=== PATIENT | female | born 1980 | race Caucasian/White ===

== ENCOUNTER 2017-05-03 15:38 | Emergency (ER) | payer SELFPAY ==
[~2017-05-03] VITALS: Ht 167.6 cm; Wt 77.1 kg
[2017-05-03 16:09] VITALS: BP 140/103
== END 2017-05-03 19:47 | disposition home or self-care (01) ==
LOC: ER 15:43
DX: J45.909 Unspecified asthma, uncomplicated (principal)

== ENCOUNTER 2020-07-07 15:55 | Emergency (ER) | payer MEDICAID, OTHER ==
[~2020-07-07] VITALS: Ht 167.6 cm; Wt 68.0 kg
[2020-07-07 18:52] LABS: Basophils # (auto) 0 10 ^3/uL (0-0.2); Basophils % (auto) 0.2 % (0.0-2.0); Eosinophils # (auto) 0.1 10 ^3/uL (0-0.8); Eosinophils % (auto) 0.9 % (0.0-7.0); Hematocrit 35.6 % (36.0-46.0); Hemoglobin 12.5 g/dL (12.2-16.2); Lymphocytes # (auto) 1.4 10 ^3/uL (0.4-5.4); Lymphocytes % (auto) 17.2 % (10.0-50.0); Mean Corpuscular Hemoglobin 32.8 pg (28.0-32.0); Mean Corpuscular Hgb Conc. 35.1 g/dL (32.0-36.0); Mean Corpuscular Volume 93.4 fL (80.0-100.0); Monocytes # (auto) 0.7 10 ^3/uL (0-1.3); Monocytes % (auto) 9.2 % (0.0-12.0); Neutrophils # (auto) 5.8 10 ^3/uL (1.6-8.6); Neutrophils % (auto) 72.5 % (37.0-80.0); Platelet Count (auto) 295 10^3/uL (140-450); Red Blood Cells 3.81 10^6/uL (4.0-5.20); White Blood Cell 8.1 10^3/uL (4.4-10.8)
[2020-07-07 19:15] LABS: Calcium 8.7 mg/dL (8.5-10.1); Potassium 3.7 mmol/L (3.5-5.1)
[2020-07-07 19:21] LABS: Albumin 3.5 g/dL (3.4-5.0); Bilirubin, Total 0.6 mg/dL (0.2-1.0); Total Protein 6.9 g/dL (6.4-8.2)
[2020-07-07 21:33] VITALS: BP 126/81
== END 2020-07-07 21:38 | disposition home or self-care (01) ==
LOC: ER 15:55
DX: L03.115 Cellulitis of right lower limb (principal); L03.116 Cellulitis of left lower limb
CPT/HCPCS: 36415; 80053; 83880; 85025

== ENCOUNTER 2022-05-24 09:28 | Inpatient (IN) | payer MEDICAID ==
[~2022-05-24] VITALS: Ht 167.6 cm; Wt 80.4 kg
[2022-05-24 10:21] LABS: Basophils # (auto) 0 10 ^3/uL (0-0.2); Basophils % (auto) 0.3 % (0.0-2.0); Eosinophils # (auto) 0 10 ^3/uL (0-0.8); Eosinophils % (auto) 0.2 % (0.0-7.0); Lymphocytes # (auto) 2.7 10 ^3/uL (0.4-5.4); Monocytes # (auto) 1.2 10 ^3/uL (0-1.3)
[2022-05-24 10:24] LABS: Hematocrit 42.6 % (36.0-46.0); Hemoglobin 14.2 g/dL (12.2-16.2); Lymphocytes % (auto) 18.6 % (10.0-50.0); Mean Corpuscular Hemoglobin 29.2 pg (28.0-32.0); Mean Corpuscular Hgb Conc. 33.2 g/dL (32.0-36.0); Mean Corpuscular Volume 87.7 fL (80.0-100.0); Neutrophils # (auto) 10.5 10 ^3/uL (1.6-8.6); Neutrophils % (auto) 72.9 % (37.0-80.0); Red Blood Cells 4.86 10^6/uL (4.0-5.20); Red Cell Distribution Width 13.3 % (11.8-14.3); White Blood Cell 14.4 10^3/uL (4.4-10.8)
[2022-05-24 10:54] LABS: Albumin 3.4 g/dL (3.4-5.0); Bilirubin, Total 0.8 mg/dL (0.2-1.0)
[2022-05-24 13:37] LABS: Urine Bacteria FEW /hpf (None Seen); Urine Blood Negative /uL (Negative); Urine Mucus FEW (None Seen); Urine Specific Gravity 1.034 (1.001-1.035); Urine WBC 33 /hpf (0 - 5)
[2022-05-24 13:38] LABS: Amphetamine Screen, Urine POSITIVE (NEGATIVE); Barbiturate Scree,Urine NEGATIVE (NEGATIVE); Benzodiazephine Screen, Urine NEGATIVE (NEGATIVE); Cannabinoid Screen, Urine NEGATIVE (NEGATIVE); Cocaine Screen, Urine NEGATIVE (NEGATIVE); Opiate Scree,Urine NEGATIVE (NEGATIVE); Phencyclidine Screen, Urine NEGATIVE (NEGATIVE)
[2022-05-24] MEDS ORDERED: cefTRIAXone 1GM/50ML D5W 50 ML IV ONE (15:00)
[2022-05-24] MEDS ORDERED: metroNIDAZOLE 500MG/100ML 100 ML IV ONE (15:00)
[2022-05-24 16:16] LABS: Lactic Acid w/Reflex 2.1 mmol/L (0.4-2.0)
[2022-05-24] MEDS ORDERED: HYDROcodone-ACET 5/325MG TAB PO PRN (17:15)
[2022-05-24] MEDS ORDERED: ACETAMINOPHEN 500 MG TAB PO PRN (17:15)
[2022-05-24] MEDS ORDERED: ENALAPRILAT 1.25 MG/ML-1ML VIAL IV PRN (17:15)
[2022-05-24] MEDS: ONDANSETRON HCL 4 MG/2 ML VIAL IV PRN (18:29)
[2022-05-24] MEDS: MORPHINE SULFATE INJ 2 MG/ml SYRG IV PRN (18:30)
[2022-05-24] MEDS: SODIUM CHLORIDE 0.9% 1,000 ML IV SCH (18:39)
[2022-05-24] MEDS: metroNIDAZOLE 500MG/100ML 100 ML IV SCH (23:29)
[2022-05-24 23:37] VITALS: BP 111/74
[2022-05-25] MEDS ORDERED: LISI-716 PO (02:22)
[2022-05-25] MEDS: SODIUM CHLORIDE 0.9% 1,000 ML IV SCH ×3 (03:15→21:40)
[2022-05-25 05:00] VITALS: BP 113/78
[2022-05-25 05:49] LABS: Basophils # (auto) 0 10 ^3/uL (0-0.2); Basophils % (auto) 0.1 % (0.0-2.0); Eosinophils # (auto) 0 10 ^3/uL (0-0.8); Eosinophils % (auto) 0.3 % (0.0-7.0); Hematocrit 40.6 % (36.0-46.0); Hemoglobin 13.7 g/dL (12.2-16.2); Lymphocytes # (auto) 2.2 10 ^3/uL (0.4-5.4); Lymphocytes % (auto) 16.8 % (10.0-50.0); Mean Corpuscular Hemoglobin 30.2 pg (28.0-32.0); Mean Corpuscular Hgb Conc. 33.8 g/dL (32.0-36.0); Mean Corpuscular Volume 89.2 fL (80.0-100.0); Monocytes # (auto) 1.5 10 ^3/uL (0-1.3); Neutrophils # (auto) 9.5 10 ^3/uL (1.6-8.6); Neutrophils % (auto) 71.8 % (37.0-80.0); Red Blood Cells 4.55 10^6/uL (4.0-5.20); White Blood Cell 13.3 10^3/uL (4.4-10.8)
[2022-05-25] MEDS: metroNIDAZOLE 500MG/100ML 100 ML IV SCH ×3 (06:00→21:40)
[2022-05-25 06:03] LABS: Calcium 7.9 mg/dL (8.5-10.1); Potassium 3.5 mmol/L (3.5-5.1)
[2022-05-25 06:09] LABS: BUN/Creatinine Ratio 22.2
[2022-05-25 09:00] VITALS: BP 113/82
[2022-05-25] MEDS: cefTRIAXone 1GM/50ML D5W 50 ML IV SCH (09:00)
[2022-05-25 13:00] VITALS: BP 103/68
[2022-05-25 16:53] VITALS: BP 104/76
[2022-05-25] MEDS: MORPHINE SULFATE INJ 2 MG/ml SYRG IV PRN (20:06)
[2022-05-25] MEDS: ONDANSETRON HCL 4 MG/2 ML VIAL IV PRN (20:09)
[2022-05-26 05:00] VITALS: BP 99/64
[2022-05-26] MEDS: metroNIDAZOLE 500MG/100ML 100 ML IV SCH ×3 (05:26→21:21)
[2022-05-26 07:58] LABS: INR 1.03 (0.9-1.15); Partial Thromboplastin Time 22.6 sec (24.6-33.4)
[2022-05-26 08:55] VITALS: BP 99/49
[2022-05-26] MEDS: ONDANSETRON HCL 4 MG/2 ML VIAL IV PRN ×2 (09:15→21:14)
[2022-05-26] MEDS: SODIUM CHLORIDE 0.9% 1,000 ML IV SCH ×2 (09:15→20:37)
[2022-05-26] MEDS: cefTRIAXone 1GM/50ML D5W 50 ML IV SCH (09:15)
[2022-05-26] MEDS: MORPHINE SULFATE INJ 2 MG/ml SYRG IV PRN ×2 (09:24→21:17)
[2022-05-26] MEDS ORDERED: LIDOCAINE VISCOUS 2% 15ML UD ONE (12:39)
[2022-05-26] MEDS ORDERED: SIMETHICONE 40 MG/0.6 ML ORAL DROP ONE (12:39)
[2022-05-26] MEDS ORDERED: fentaNYL CITRATE 100 MCG/2 ML VL ONE (12:40)
[2022-05-26] MEDS ORDERED: diphenhdrAMINE HCL 50 MG/1 ML VL ONE (12:40)
[2022-05-26] MEDS: MIDAZOLAM HCL 5 MG/ML-1ML VIAL ONE ×2 (12:55→12:59)
[2022-05-26 13:00] VITALS: BP 101/53
[2022-05-26 16:36] VITALS: BP 111/50
[2022-05-26 22:00] VITALS: BP 107/76
[2022-05-27 05:00] VITALS: BP 109/65
[2022-05-27] MEDS: SODIUM CHLORIDE 0.9% 1,000 ML IV SCH ×2 (05:33→15:15)
[2022-05-27] MEDS: metroNIDAZOLE 500MG/100ML 100 ML IV SCH ×2 (05:33→15:22)
[2022-05-27 09:00] VITALS: BP 114/73
[2022-05-27] MEDS ORDERED: PANTOPRAZOLE 40 MG TAB PO SCH (10:00)
[2022-05-27] MEDS ORDERED: GASTROGRAFIN 120 ML SOL ONE (10:05)
[2022-05-27] MEDS: cefTRIAXone 1GM/50ML D5W 50 ML IV SCH (11:36)
[2022-05-27] MEDS: MORPHINE SULFATE INJ 2 MG/ml SYRG IV PRN (11:41)
[2022-05-27 13:00] VITALS: BP 119/82
[2022-05-27 16:50] VITALS: BP 122/82
== END 2022-05-27 20:00 | disposition left against medical advice (07) | DRG 720 ==
LOC: ER 09:28 → OVERFLOW 17:27 → WEST WING 21:40
PROVIDERS: ADMIT Nurse Practitioner Acute Care; ATTEND Nurse Practitioner Acute Care
PROC: 0DD68ZX Extraction of Stomach, Via Natural or Artificial Opening Endoscopic, Diagnostic (ICD-10-PCS; 2022-05-26)
PROC: 0DD48ZX Extraction of Esophagogastric Junction, Via Natural or Artificial Opening Endoscopic, Diagnostic (ICD-10-PCS; 2022-05-26)
PROC: 0DD98ZX Extraction of Duodenum, Via Natural or Artificial Opening Endoscopic, Diagnostic (ICD-10-PCS; principal; 2022-05-26 12:50)
DX: A41.9 Sepsis, unspecified organism (principal); K22.10 Ulcer of esophagus without bleeding; N30.90 Cystitis, unspecified without hematuria; F15.10 Other stimulant abuse, uncomplicated; I10 Essential (primary) hypertension; K44.9 Diaphragmatic hernia without obstruction or gangrene; K57.30 Diverticulosis of large intestine without perforation or abscess without bleeding; K52.9 Noninfective gastroenteritis and colitis, unspecified; K29.70 Gastritis, unspecified, without bleeding; K21.9 Gastro-esophageal reflux disease without esophagitis; Z20.822 Contact with and (suspected) exposure to COVID-19; Z53.29 Procedure and treatment not carried out because of patient's decision for other reasons
CPT/HCPCS: 36415; 43239; 74176; 74250; 80048; 80053; 80307; 81001; 81025; 83605; 85025; 85610; 85730; 87040; 87086; 87088; 87186; 93306; 96365; 96375; G0378; J0696; J2250; J2405; J3490

== ENCOUNTER 2023-02-16 18:28 | Inpatient (IN) | payer MEDICAID ==
[~2023-02-16] VITALS: Ht 170.2 cm; Wt 71.7 kg
[~2023-02-16 18:28] MED LIST: LISI10TA34 PO
[2023-02-16] MEDS ORDERED: SODIUM CHLORIDE 0.9% 1,000 ML IV ONE (20:00)
[2023-02-16] MEDS ORDERED: IOHEXOL 350 MG/ML 100ML IJ ONE (20:16)
[2023-02-16 21:33] LABS: Basophils # (auto) 0 10 ^3/uL (0-0.2); Basophils % (auto) 0.4 % (0.0-2.0); Eosinophils # (auto) 0.2 10 ^3/uL (0-0.8); Eosinophils % (auto) 1.3 % (0.0-7.0); Hematocrit 32.9 % (36.0-46.0); Hemoglobin 11.2 g/dL (12.2-16.2); Lymphocytes # (auto) 1.4 10 ^3/uL (0.4-5.4); Lymphocytes % (auto) 12.4 % (10.0-50.0); Mean Corpuscular Hemoglobin 30.2 pg (28.0-32.0); Mean Corpuscular Hgb Conc. 33.9 g/dL (32.0-36.0); Monocytes # (auto) 0.9 10 ^3/uL (0-1.3); Monocytes % (auto) 7.5 % (0.0-12.0); Neutrophils # (auto) 9.1 10 ^3/uL (1.6-8.6); Neutrophils % (auto) 78.4 % (37.0-80.0); Red Cell Distribution Width 13.5 % (11.8-14.3); White Blood Cell 11.6 10^3/uL (4.4-10.8)
[2023-02-16 22:07] LABS: Albumin 3.1 g/dL (3.4-5.0); Calcium 8.3 mg/dL (8.5-10.1); Potassium 3.5 mmol/L (3.5-5.1)
[2023-02-16 22:10] LABS: BUN/Creatinine Ratio 12.7 (10.0-20.0); Bilirubin, Total 0.4 mg/dL (0.2-1.0); Total Protein 6.4 g/dL (6.4-8.2)
[2023-02-16 22:24] LABS: Urine Bacteria FEW /hpf (None Seen); Urine Blood Negative /uL (Negative); Urine Hyaline Cast FEW /lpf (0 - 2); Urine Specific Gravity 1.008 (1.001-1.035); Urine WBC 3 /hpf (0 - 5)
[2023-02-16] MEDS ORDERED: cefTRIAXone 1GM/50ML D5W 50 ML IV ONE (23:00)
[2023-02-16] MEDS ORDERED: metroNIDAZOLE 500MG/100ML 100 ML IV ONE (23:00)
[2023-02-17] MEDS ORDERED: ALBUMIN 5% 250 ML IV ONE (00:30)
[2023-02-17] MEDS ORDERED: HYDROcodone-ACET 5/325MG TAB PO PRN (01:30)
[2023-02-17] MEDS ORDERED: MORPHINE SULFATE INJ 2 MG/ml SYRG IV PRN (01:30)
[2023-02-17] MEDS: SODIUM CHLORIDE 0.9% 1,000 ML IV SCH ×4 (01:56→21:41)
[2023-02-17] MEDS: metroNIDAZOLE 500MG/100ML 100 ML IV SCH ×3 (06:19→21:36)
[2023-02-17 06:23] LABS: Basophils # (auto) 0 10 ^3/uL (0-0.2); Basophils % (auto) 0.3 % (0.0-2.0); Eosinophils # (auto) 0.1 10 ^3/uL (0-0.8); Eosinophils % (auto) 2.1 % (0.0-7.0); Hematocrit 29.1 % (36.0-46.0); Hemoglobin 10.1 g/dL (12.2-16.2); Lymphocytes # (auto) 1.6 10 ^3/uL (0.4-5.4); Mean Corpuscular Hemoglobin 30.8 pg (28.0-32.0); Mean Corpuscular Hgb Conc. 34.6 g/dL (32.0-36.0); Monocytes # (auto) 0.6 10 ^3/uL (0-1.3); Monocytes % (auto) 9.3 % (0.0-12.0); Neutrophils # (auto) 3.8 10 ^3/uL (1.6-8.6); Neutrophils % (auto) 62.3 % (37.0-80.0); Red Blood Cells 3.27 10^6/uL (4.0-5.20); Red Cell Distribution Width 13.5 % (11.8-14.3); White Blood Cell 6.1 10^3/uL (4.4-10.8)
[2023-02-17 06:41] LABS: Albumin 2.9 g/dL (3.4-5.0); Calcium 7.3 mg/dL (8.5-10.1); Potassium 3.9 mmol/L (3.5-5.1)
[2023-02-17 06:45] LABS: BUN/Creatinine Ratio 12.5 (10.0-20.0); Bilirubin, Total 0.4 mg/dL (0.2-1.0); Total Protein 5.6 g/dL (6.4-8.2)
[2023-02-17] MEDS: cefTRIAXone 1GM/50ML D5W 50 ML IV SCH (09:20)
[2023-02-17] MEDS: PANTOPRAZOLE 40 MG/10 ML VIAL INJ IV SCH (10:42)
[2023-02-17] MEDS: ENOXAPARIN SOD 40 MG/0.4 ML SYRINGE SC SCH (10:42)
[2023-02-17 17:11] VITALS: BP 93/58
[2023-02-17 20:00] VITALS: BP 109/57
[2023-02-17 22:00] VITALS: BP 109/57
[2023-02-18 05:10] VITALS: BP 97/66
[2023-02-18] MEDS: metroNIDAZOLE 500MG/100ML 100 ML IV SCH (05:59)
[2023-02-18 06:30] LABS: Potassium 4.1 mmol/L (3.5-5.1)
[2023-02-18 06:36] LABS: Albumin 2.9 g/dL (3.4-5.0); BUN/Creatinine Ratio 8.8 (10.0-20.0); Bilirubin, Total 0.3 mg/dL (0.2-1.0); Calcium 7.8 mg/dL (8.5-10.1); Total Protein 5.5 g/dL (6.4-8.2)
[2023-02-18 08:44] LABS: Basophils # (auto) 0 10 ^3/uL (0-0.2); Basophils % (auto) 0.4 % (0.0-2.0); Eosinophils # (auto) 0.1 10 ^3/uL (0-0.8); Eosinophils % (auto) 1.7 % (0.0-7.0); Hematocrit 32.8 % (36.0-46.0); Lymphocytes # (auto) 1.6 10 ^3/uL (0.4-5.4); Mean Corpuscular Hemoglobin 30.1 pg (28.0-32.0); Mean Corpuscular Hgb Conc. 33.6 g/dL (32.0-36.0); Mean Corpuscular Volume 89.6 fL (80.0-100.0); Monocytes # (auto) 0.5 10 ^3/uL (0-1.3); Monocytes % (auto) 8.5 % (0.0-12.0); Neutrophils # (auto) 3.2 10 ^3/uL (1.6-8.6); Neutrophils % (auto) 60.4 % (37.0-80.0); Red Blood Cells 3.66 10^6/uL (4.0-5.20); Red Cell Distribution Width 13.4 % (11.8-14.3); White Blood Cell 5.3 10^3/uL (4.4-10.8)
[2023-02-18] MEDS: cefTRIAXone 1GM/50ML D5W 50 ML IV SCH (08:52)
[2023-02-18] MEDS: PANTOPRAZOLE 40 MG/10 ML VIAL INJ IV SCH (08:52)
[2023-02-18] MEDS: ENOXAPARIN SOD 40 MG/0.4 ML SYRINGE SC SCH (08:52)
[2023-02-18 09:26] VITALS: BP 100/67
[2023-02-18] MEDS ORDERED: CIPR-173 PO (09:36)
[2023-02-18] MEDS ORDERED: METR-344 PO (09:36)
[2023-02-18 10:21] VITALS: BP 100/67
[2023-02-18] MEDS: SODIUM CHLORIDE 0.9% 1,000 ML IV SCH (10:50)
== END 2023-02-18 11:53 | disposition home or self-care (01) | DRG 244 ==
LOC: EDBD 18:28 → ER 18:28 → OVERFLOW 02-17 01:28 → WEST WING 02-17 16:10
PROVIDERS: ADMIT Nurse Practitioner Family; ATTEND Internal Medicine Geriatric Medicine
DX: K57.32 Diverticulitis of large intestine without perforation or abscess without bleeding (principal); I95.9 Hypotension, unspecified; E88.09 Other disorders of plasma-protein metabolism, not elsewhere classified; I10 Essential (primary) hypertension; Z80.9 Family history of malignant neoplasm, unspecified
CPT/HCPCS: 36415; 71045; 74176; 80053; 81001; 81025; 82306; 82607; 83605; 83690; 84443; 85025; 86850; 86900; 86901; 87040; 93005; 96365; 96366; 96367; 96372; 96375; C9113; G0378; J0696; J3490

== ENCOUNTER 2024-02-05 19:31 | Emergency (ER) | payer MEDICAID ==
[~2024-02-05] VITALS: Ht 167.6 cm; Wt 65.9 kg
[~2024-02-05 19:31] MED LIST changes: +CIPR-173 PO; +METR-344 PO
[2024-02-05 20:33] LABS: Basophils # (auto) 0 10 ^3/uL (0-0.2); Basophils % (auto) 0.3 % (0.0-2.0); Eosinophils # (auto) 0.1 10 ^3/uL (0-0.8); Eosinophils % (auto) 0.7 % (0.0-7.0); Hematocrit 46.1 % (36.0-46.0); Hemoglobin 15.3 g/dL (12.2-16.2); Lymphocytes # (auto) 2.2 10 ^3/uL (0.4-5.4); Lymphocytes % (auto) 14.5 % (10.0-50.0); Mean Corpuscular Hemoglobin 28.2 pg (28.0-32.0); Mean Corpuscular Hgb Conc. 33.2 g/dL (32.0-36.0); Mean Corpuscular Volume 85.1 fL (80.0-100.0); Monocytes # (auto) 1.2 10 ^3/uL (0-1.3); Monocytes % (auto) 8.3 % (0.0-12.0); Neutrophils # (auto) 11.4 10 ^3/uL (1.6-8.6); Neutrophils % (auto) 76.2 % (37.0-80.0); Red Blood Cells 5.42 10^6/uL (4.0-5.20); Red Cell Distribution Width 16.5 % (11.8-14.3)
[2024-02-05 20:46] LABS: Alanine Aminotransferase 27 U/L (7-40); Albumin 4.5 g/dL (3.2-4.8); Alkaline Phosphatase 89 U/L (46-116); Anion Gap 9 (5-15); Aspartate Aminotransferase 23 U/L (13-40); BUN/Creatinine Ratio 13.5 (10.0-20.0); Blood Urea Nitrogen 13 mg/dL (9-23); Calcium 10.5 mg/dL (8.7-10.4); Carbon Dioxide 27 mmol/L (20-30); Chloride 101 mmol/L (98-107); Glucose 114 mg/dL (74-106); Lipase 30 U/L (12-53); Sodium 137 mmol/L (136-145)
[2024-02-05 20:47] LABS: Bilirubin, Total 1.1 mg/dL (0.2-1.0); Total Protein 7.6 g/dL (5.7-8.2)
[2024-02-05] MEDS ORDERED: DICY10CA PO (21:26)
[2024-02-05] MEDS ORDERED: ZOFR4T PO (21:26)
[2024-02-05 22:35] VITALS: PULSE 63; RESP 18; TEMP 98.6; O2SAT 97
[2024-02-05] MEDS: ONDANSETRON ODT 4 MG TAB PO ONE (22:43)
[2024-02-05 22:44] VITALS: BP 97/58; PULSE 63; RESP 20
[2024-02-05] MEDS: MORPHINE SULFATE 4 MG/ML SYR/VIAL IM ONE (22:44)
== END 2024-02-05 22:49 | disposition home or self-care (01) ==
LOC: ER 19:31 → EDBD 19:31 → ER 22:49
DX: K52.9 Noninfective gastroenteritis and colitis, unspecified (principal); R10.2 Pelvic and perineal pain; I10 Essential (primary) hypertension; F15.90 Other stimulant use, unspecified, uncomplicated; Z79.899 Other long term (current) drug therapy
CPT/HCPCS: 36415; 74176; 80053; 83690; 84702; 85025; 96372; 99285; J2270; Q0162

== ENCOUNTER 2024-03-13 14:13 | Emergency (ER) | payer MEDICAID ==
[~2024-03-13] VITALS: Ht 167.6 cm; Wt 70.0 kg
[~2024-03-13 14:13] MED LIST changes: +DICY10CA PO; +ZOFR4T PO
[2024-03-13 14:22] VITALS: BP 116/62; PULSE 96; RESP 18; O2SAT 99
== END 2024-03-13 16:10 | disposition left against medical advice (07) ==
LOC: EDUNIT# 14:13 → ER 14:13 → EDBD 14:13 → ER 16:10
DX: J02.9 Acute pharyngitis, unspecified (principal); Z53.21 Procedure and treatment not carried out due to patient leaving prior to being seen by health care provider

== ENCOUNTER 2024-05-23 11:13 | Emergency (ER) | payer MEDICAID ==
[~2024-05-23] VITALS: Ht 167.6 cm; Wt 65.0 kg
[2024-05-23 12:06] VITALS: BP 148/96; PULSE 104; RESP 14; TEMP 98.6; O2SAT 97
[2024-05-23] MEDS ORDERED: HYDR-3682 PO (12:49)
[2024-05-23] MEDS ORDERED: TRIO1TP EX (12:49)
[2024-05-23] MEDS ORDERED: [UNRECOGNIZED DRUG - CODE] EX (12:49)
[2024-05-23] MEDS ORDERED: PRED20TA2 PO (12:49)
[2024-05-23] MEDS: FAMOTIDINE 20 MG TAB PO ONE (13:03)
[2024-05-23] MEDS: methylPREDNISolone SOD SUCC 125 MG/2 ML VL IM ONE (13:03)
[2024-05-23] MEDS: diphenhdrAMINE HCL 25 MG CAP PO ONE (13:03)
== END 2024-05-23 13:07 | disposition home or self-care (01) ==
LOC: ER 11:13
DX: L28.1 Prurigo nodularis (principal); B86 Scabies; F15.10 Other stimulant abuse, uncomplicated; I10 Essential (primary) hypertension
CPT/HCPCS: 96372; 99283; J2919

== ENCOUNTER 2024-07-07 10:56 | Emergency (ER) | payer MEDICAID ==
[~2024-07-07] VITALS: Ht 167.6 cm; Wt 68.4 kg
[~2024-07-07 10:56] MED LIST changes: +HYDR-3682 PO; +PRED20TA2 PO; +TRIO1TP EX; +[UNRECOGNIZED DRUG - CODE] EX
[2024-07-07 11:54] VITALS: BP 149/102; PULSE 121; RESP 22; TEMP 98.8; O2SAT 97
[2024-07-07] MEDS ORDERED: CEPH500C PO (11:57)
[2024-07-07] MEDS ORDERED: BACDST PO (11:57)
[2024-07-07] MEDS ORDERED: HYDR25CA PO (11:57)
--- NOTE | 2024-07-07 11:59 | ED.PDOC ---
History of Present Illness(SKN HPI Comments A 44 YEAR OLD FEMALE PRESENTS TO THE ED WITH COMPLAINT OF GENERALIZED RASH. PATIENT STATES HE HAS BEEN EXPERIENCING A GENERALIZED BODY RASH WITH ITCHING THAT IS WORSE AT NIGHT OFF AND ON FOR THE PAST 2 MONTHS. PATIENT IS A POOR HISTORIAN AND APPEARS TO BE UNDER THE INFLUENCE OF A SUBSTANCE UPON INITIAL EXA MINATION. PATIENT DENIES FEVER, CHILLS, SHORTNESS OF BREATH, CHEST PAIN, ABDOMINAL PAIN, NAUSEA, VOMITING, HEADACHE, OR OTHER COMPLAINTS. NO OTHER SYMPTOMS OR MODIFYING FACTORS AT THIS TIME. PATIENT IS ALERT, ORIENTED X 4, AND HAS STEADY GAIT. Chief Complaint: Rash Time Seen by MD: 11:27 Primary Care Provider: NONE History of Present Illness: Nurses Notes, Medications, Allergies Allergies: Coded Allergies: NO KNOWN ALLERGIES (Unverified , 07/07/20) Home Meds Active Scripts Hydroxyzine Pamoate (Vistaril) 25 Mg Cap, 1 CAP PO BID, #30 CAP Prov:CINTHIA LOGAN 07/07/24 Cephalexin Monohydrate (Cephalexin) 500 Mg Cap, 1 CAP PO TID, #30 CAP Prov:CINTHIA LOGAN 07/07/24 Sulfamethoxazole W/Trimethopri (Bactrim Ds Tablet) 1 Tab Tb, 1 TAB PO BID for 10 Days, #20 TAB Prov:CINTHIA LOGAN 07/07/24 Ivermectin (Pediculicide) (Ivermectin) 0.5 % Lot, 0.5 % EX ONCE for 1 Day, #1 BOTTLE 0 Refills Prov:JHON ARNETT NP 05/23/24 Triamcinolone Acetonide (Triamcinolone Acetonide) 0.1 % Cre, 2 GRAMS EX BID for 5 Days, #80 GRAMS 0 Refills Prov:JHON ARNETT NP 05/23/24 Prednisone (Prednisone) 20 Mg Tab, 40 MG PO DAILY for 5 Days, #10 TAB 0 Refills Prov:JHON ARNETT NP 05/23/24 Hydroxyzine Hcl (Hydroxyzine Hcl) 25 Mg Tab, 1 TAB PO TIDPRN PRN for 14 Days, #42 TAB 0 Refills Prov:JHON ARNETT NP 05/23/24 Ondansetron Odt 4MG Tab (ZOFRAN PO) 4 Mg Tb, 4 MG PO Q6HPRN PRN, #20 TAB ODT TAB-DISSOLVE IN MOUTH, THEN SWALLOW Prov:YANA FALCON DO 02/05/24 Dicyclomine Hcl (BENTYL CAPSULE) 10 Mg Cp, 2 CAP PO Q6HPRN, #40 CAP 3 Refills Prov:YANA FALCON DO 02/05/24 Metronidazole (Flagyl) 500 Mg Tab, 1 TAB PO TID, #21 TAB Prov:LUCAS ALVSE MD 02/18/23 Ciprofloxacin Hcl (Cipro) 500 Mg Tab, 1 TAB PO BID, #14 TAB Prov:LUCAS ALVES MD 02/18/23 Reported Medications Lisinopril (Lisinopril) 10 Mg Tab, 10 MG PO DAILY for 30 Days, MG 05/25/22 Information Source: Patient Mode of Arrival: Ambulatory Severity: Moderate Timing: Months Duration: Intermittent Prehospital treatment: None Location: Generalized Mechanism: Scabies Developed: Rash Occurence: Indoors Object: None Condition of Object: None Retained Foreign Body: No Wound Type: None Immunization Status of Animal: NA Tetanus: Unknown History of: None Associated Signs and Symptoms: Redness Past Medical History PAST MEDICAL HISTORY: HTN Surgical History: Denies all surgeries MEDICAL INSTRUMENT TECHNICIAN History: No Pertinent MEDICAL INSTRUMENT TECHNICIAN History Family History Family History: Reviewed,noncontributory to illness, Family hx of Cancer Social History Smoker: Non-Smoker Alcohol: Occasionally Drugs: Methamphetamine Lives In: Home Constitutional: denies: chills, diaphoresis, fatigue, fever, malaise, sweats, weakness, others EENTM: denies: blurred vision, double vision, ear bleeding, ear discharge, ear drainage, ear pain, ear ringing, eye pain, eye redness, hearing loss, mouth pain, mouth swelling, nasal discharge, nose bleeding, nose congestion, nose pain, photophobia, tearing, throat pain, throat swelling, voice changes, others Respiratory: denies: cough, hemoptysis, orthopnea, SOB at rest, shortness of breath, SOB with excertion, stridor, wheezing, others Cardiovascular: denies: chest pain, dizzy spells, diaphoresis, Dyspnea on exertion, edema, irregular heart beat, left arm pain, lightheadedness, palpitations, PND, syncope, others Gastrointestinal: denies: abdomen distended, abdominal pain, blood streaked bowels, constipated, diarrhea, dysphagia, difficulty swallowing, hematemesis, melena, nausea, poor appetite, poor fluid intake, rectal bleeding, rectal pain, vomiting, others Genitourinary: denies: abnormal vagina bleeding, burning, dyspareunia, dysuria, flank pain, frequency, hematuria, incontinence, pain, , vagina discharge, urgency, others Neurological: denies: dizziness, fainting, headache, left sided numbness, left sided weakness, numbness, paresthesia, pre-existing deficit, right sided num bness, right sided weakness, seizure, speech problems, tingling, tremors, weakness, others Musculoskeletal: denies: back pain, gout, joint pain, joint swelling, muscle pain, muscle stiffness, neck pain, others Integumetry: reports: rash, wounds; denies: bruises, change in color, change in hair/nails, dryness, laceration, lesions, lumps, others Allergic/Immunocompromised: denies: Difficulty Healing, Frequent Infections, Hives, Itching, others Hematologic/Lymphatic: denies: anemia, blood clots, easy bleeding, easy bruising, swollen glands, others Endocrine: denies: excessive hunger, excessive sweating, excessive thirst, excessive urination, flushing, intolerance to cold, intolerance to heat, unexplained weight gain, unexplained weight loss, others Psychiatric: denies: anxiety, bipolar disorder, depression, hopeless, panic disorder, schizophrenia, sleepless, suicidal, others All Other Systems: Reviewed and Negative Physical Exam General Appearance: No Apparent Distress, Normal, Other (ANXIOUS ) HEENT: Normal ENT Inspection, PERRL/EOMI, Pharynx Normal, TMs Normal Neck: Full Range of Motion, Non-Tender, Normal, Normal Inspection Respiratory: Chest Non-Tender, Lungs Clear, No Accessory Muscle Use, No Respiratory Distress, Normal Breath Sounds Cardiovascular: No Edema, No JVD, No Murmur, No Gallop, Normal Peripheral Pulses, Regular Rate/Rhythm Breast Exam: Deferred Gastrointestinal: No Organomegaly, Non Tender, No Pulsatile Mass, Normal Bowel Sounds, Soft Genitalia: Deferred Pelvic: Deferred Rectal: Deferred Extremities: No calf tenderness, Normal capillary refill, Normal inspection, Normal range of motion, Non-tender, No pedal edema Musculoskeletal : Apperance: Normal Neurologic: Alert, surveillance specialist II-XII nml as Tested, No Motor Deficits, Normal Affect, Normal Mood, No Sensory Deficits Cerebellar Function: Normal Reflexes: Normal Skin: Dry, Rash (SCABIES TYPE SKIN RASH ON BACK, NECK AND ARMS. ), Warm, Wounds (MULTIPLES PAPULAR AND MACULAR BUMPS WITH REDNESS, TENDERNESS AND BLISTERS ON BACK, NECK AND ARMS. ) Peripheral Pulses: 2+ carotid (R), 2+ carotid (L) Lymphatic: No Adenopathy Was a procedure done? Was a procedure done?: No Differential Diagnosis (INTG) Differential Diagnosis: N/A Differential Diagnosis: Atopic dermatitis, Contact Dermatitis, Impetigo, Intertrigo, Scabies, Tinea, Urticaria Differential Diagnosis: N/A Abscess: N/A Differential Diagnosis: N/A X-Ray, Labs, Meds, VS Vital Signs Date Time Temp Pulse Resp B/P (MAP) Pulse Ox O2 Delivery O2 Flow Rate FiO2 07/07/24 11:54 98.8 121 22 149/102 (118) 97 98.8 07/07/24 11:29 98.8 121 22 149/102 (118) 97 Time of 1ST Reevaluation: 12:05 Reevaluation 1ST: Improved Patient Education/Counseling: Diagnosis, Treatment, Need For Follow Up Family Education/Counseling: Diagnosis, Treatment, Need For Follow Up Medical Screening: No EMC Exist At This Time Departure 1 Departure Time of Disposition: 12:05 Impression: Primary Impression: Scabies Additional Impression: Suspected soft tissue infection Disposition: HOME / SELF CARE / HOMELESS Condition: Stable Additional Instructions: FOLLOW-UP WITH PCP IN 1 TO 2 DAYS. TAKE MEDICATIONS PRESCRIBED. RETURN TO ED FOR ANY NEW OR WORSENING SYMPTOMS. e-Prescriptions Hydroxyzine Pamoate (Vistaril) 25 Mg Cap 1 CAP PO BID, #30 CAP Prov: CINTHIA LOGAN 07/07/24 Cephalexin Monohydrate (Cephalexin) 500 Mg Cap 1 CAP PO TID, #30 CAP Prov: CINTHIA LOGAN 07/07/24 Sulfamethoxazole W/Trimethopri (Bactrim Ds Tablet) 1 Tab Tb 1 TAB PO BID for 10 Days, #20 TAB Prov: CINTHIA LOGAN 07/07/24 Discharged With: Self Critical Care Note Critical Care Time?: No Stability Stability form required: No I personally scribed for CINTHIA LOGAN ([email or web address]) on 07/07/24 at 11:59. Elec tronically submitted by Carlos Erazo ([email or web address]). CINTHIA LOGAN Jul 07, 2024 11:59
== END 2024-07-07 12:16 | disposition home or self-care (01) ==
LOC: ER 10:56
DX: B86 Scabies (principal); L08.89 Other specified local infections of the skin and subcutaneous tissue; I10 Essential (primary) hypertension; F15.90 Other stimulant use, unspecified, uncomplicated; Z79.52 Long term (current) use of systemic steroids; Z79.899 Other long term (current) drug therapy

== ENCOUNTER 2024-08-04 23:15 | Emergency (ER) | payer MEDICAID ==
[~2024-08-04] VITALS: Ht 167.6 cm; Wt 63.5 kg
[~2024-08-04 23:15] MED LIST changes: +BACDST PO; +CEPH500C PO; +HYDR25CA PO
--- NOTE | 2024-08-04 23:30 | ED.PDOC ---
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 Patient endorses a connective tissue disorder and elevated blood pressure otherwise no other medical problems. Endorses and tolerance of lisinopril. Otherwise on 10 point review of systems no acute complaints such as noted above in HPI. Patient smokes socially. Chief Complaint: Mental Health Time Seen by MD: 23:15 Primary Care Provider: NONE Allergies: Coded Allergies: NO KNOWN ALLERGIES (Unverified , 07/07/20) Home Meds Active Scripts Hydroxyzine Pamoate (Vistaril) 25 Mg Cap, 1 CAP PO BID, #30 CAP Prov:CINTHIA LOGAN 07/07/24 Cephalexin Monohydrate (Cephalexin) 500 Mg Cap, 1 CAP PO TID, #30 CAP Prov:CINTHIA LOGAN 07/07/24 Sulfamethoxazole W/Trimethopri (Bactrim Ds Tablet) 1 Tab Tb, 1 TAB PO BID for 10 Days, #20 TAB Prov:CINTHIA LOGAN 07/07/24 Ivermectin (Pediculicide) (Ivermectin) 0.5 % Lot, 0.5 % EX ONCE for 1 Day, #1 BOTTLE 0 Refills Prov:JHON ARNETT NP 05/23/24 Triamcinolone Acetonide (Triamcinolone Acetonide) 0.1 % Cre, 2 GRAMS EX BID for 5 Days, #80 GRAMS 0 Refills Prov:JHON ARNETT NP 05/23/24 Prednisone (Prednisone) 20 Mg Tab, 40 MG PO DAILY for 5 Days, #10 TAB 0 Refills Prov:JHON ARNETT NP 05/23/24 Hydroxyzine Hcl (Hydroxyzine Hcl) 25 Mg Tab, 1 TAB PO TIDPRN PRN for 14 Days, #42 TAB 0 Refills Prov:JHON ARNETT NP 05/23/24 Ondansetron Odt 4MG Tab (ZOFRAN PO) 4 Mg Tb, 4 MG PO Q6HPRN PRN, #20 TAB ODT TAB-DISSOLVE IN MOUTH, THEN SWALLOW Prov:YANA FALCON DO 02/05/24 Dicyclomine Hcl (BENTYL CAPSULE) 10 Mg Cp, 2 CAP PO Q6HPRN, #40 CAP 3 Refills Prov:YANA FALCON DO 02/05/24 Metronidazole (Flagyl) 500 Mg Tab, 1 TAB PO TID, #21 TAB Prov:LUCAS ALVES MD 02/18/23 Ciprofloxacin Hcl (Cipro) 500 Mg Tab, 1 TAB PO BID, #14 TAB Prov:LUCAS ALVES MD 02/18/23 Reported Medications Lisinopril (Lisinopril) 10 Mg Tab, 10 MG PO DAILY for 30 Days, MG 05/25/22 Mode of Arrival: EMS Past Medical History PAST MEDICAL HISTORY: HTN Surgical History: Denies all surgeries LIBRARY PAGE History: No Pertinent LIBRARY PAGE History Family History Family History: Reviewed,noncontributory to illness, Family hx of Cancer Social History Smoker: Non-Smoker Alcohol: Occasionally Drugs: Methamphetamine Lives In: Home Constitutional: denies: chills, fatigue, fever, sweats EENTM: denies: blurred vision, double vision, ear bleeding Respiratory: denies: cough, SOB at rest, shortness of breath Cardiovascular: denies: chest pain, irregular heart beat Gastrointestinal: denies: abdomen distended, abdominal pain Psychiatric: reports: others (Visual hallucinations) Physical Exam Exam Comments Older than stated age in appearance, disheveled, scattered excoriated sores without parasites noted General Appearance: No Apparent Distress, Normal HEENT: Normal ENT Inspection, Pharynx Normal, TMs Normal Neck: Full Range of Motion, Non-Tender, Normal, Normal Inspection Respiratory: Chest Non-Tender, Lungs Clear, No Accessory Muscle Use, No Respiratory Distress, Normal Breath Sounds Cardiovascular: No Edema, No JVD, No Murmur, No Gallop, Normal Peripheral Pulses, Regular Rate/Rhythm Breast Exam: Deferred Gastrointestinal: No Organomegaly, Non Tender, No Pulsatile Mass, Normal Bowel Sounds, Soft Genitalia: Deferred Pelvic: Deferred Rectal: Deferred Extremities: No calf tenderness, Normal capillary refill, Normal inspection, Normal range of motion, Non-tender, No pedal edema Musculoskeletal : Apperance: Normal Neurologic: Alert, alpine guide II-XII nml as Tested, No Motor Deficits, Normal Affect, Normal Mood, No Sensory Deficits Cerebellar Function: Normal Reflexes: Normal Skin: Dry, Normal Color, Warm Lymphatic: No Adenopathy Was a procedure done? Was a procedure done?: No Differential Dx Considerations may include: Most likely amphetamine psychosis as patient endorses amphetamine abuse. Other etiologies of psychosis also possible X-Ray, Labs, Meds, VS Vital Signs Date Time Temp Pulse Resp B/P (MAP) Pulse Ox O2 Delivery O2 Flow Rate FiO2 08/05/24 00:50 98.3 97 16 129/92 (104) 99 98.3 08/04/24 23:21 98.6 102 18 142/96 (111) 97 Lab Test 08/04/24 23:33 Range/Units White Blood Count 9.0 4.4-10.8 10^3/uL Red Blood Count 4.23 4.0-5.20 10^6/uL Hemoglobin 11.0 L 12.2-16.2 g/dL Hematocrit 33.9 L 36.0-46.0 % Mean Corpuscular Volume 80.2 80.0-100.0 fL Mean Corpuscular Hemoglobin 26.1 L 28.0-32.0 pg Mean Corpuscular Hemoglobin Concent 32.5 32.0-36.0 g/dL Red Cell Distribution Width 15.8 H 11.8-14.3 % Platelet Count 356 140-450 10^3/uL Mean Platelet Volume 6.3 L 6.9-10.8 fL Neutrophils (%) (Auto) 68.3 37.0-80.0 % Lymphocytes (%) (Auto) 18.4 10.0-50.0 % Monocytes (%) (Auto) 11.1 0.0-12.0 % Eosinophils (%) (Auto) 1.9 0.0-7.0 % Basophils (%) (Auto) 0.3 0.0-2.0 % Neutrophils # (Auto) 6.2 1.6-8.6 10 ^3/uL Lymphocytes # (Auto) 1.7 0.4-5.4 10 ^3/uL Monocytes # (Auto) 1.0 0-1.3 10 ^3/uL Eosinophils # (Auto) 0.2 0-0.8 10 ^3/uL Basophils # (Auto) 0 0-0.2 10 ^3/uL Nucleated Red Blood Cells 0.0 % Sodium Level 137 136-145 mmol/L Potassium Level 3.6 3.5-5.1 mmol/L Chloride Level 104 98-107 mmol/L Carbon Dioxide Level 22 20-31 mmol/L Anion Gap 11 5-15 Blood Urea Nitrogen 13 9-23 mg/dL Creatinine 1.11 H 0.550-1.02 mg/dL Glomerular Filtration Rate Calc 63 >90 mL/min BUN/Creatinine Ratio 11.7 10.0-20.0 Serum Glucose 88 74-106 mg/dL Calcium Level 9.6 8.7-10.4 mg/dL Total Bilirubin 0.5 0.2-1.0 mg/dL Aspartate Amino Transferase (AST) 33 13-40 U/L Alanine Aminotransferase (ALT) 33 7-40 U/L Alkaline Phosphatase 106 46-116 U/L Total Protein 7.3 5.7-8.2 g/dL Albumin 4.3 3.2-4.8 g/dL Salicylates Level < 3.0 -30 mg/dL Acetaminophen Level < 2.0 L 10.0-20.0 UG/ML Plasma/Serum Blood Alcohol < 3.0 <10 mg/dL Current Medications Medications (Trade) Dose Ordered Sig/Veena Route Start Time Stop Time Status Last Admin Olanzapine (ZyPREXA Tablet) 10 mg ONCE ONCE PO 08/04/24 23:30 08/04/24 23:31 DC 08/05/24 00:57 Lorazepam (Ativan Inj) 1 mg ONCE ONCE IM 08/04/24 23:30 08/04/24 23:31 DC 08/05/24 00:57 X-Ray, Labs, Meds, VS Comment PATIENT IS BEING DISCHARGED TO THE [facility]. SHE DOES NOT WISH TO SEE SOCIAL WORK. SHE WOULD LIKE TO SLEEP IN THE [facility] OVERNIGHT WHICH IS FINE. Time of 1ST Reevaluation: 23:29 Reevaluation 1ST: Unchanged (Charge nurse has to place patient in bed as patient is psychotic. Zyprexa and Ativan ordered.) Time of 2ND Reevaluation: 01:06 Reevaluation 2ND: Improved (Amphetamines psychosis seems to be wearing off, patient denies seeing parasites at this time. She had gotten her Zyprexa and Ativan fairly recently so I do not think it is that much just be that the meth were off.) Patient Education/Counseling: Diagnosis, Treatment Family Education/Counseling: No Family Present Departure 1 Departure Time of Disposition: 23:29 Impression: Primary Impression: Amphetamine use Additional Impression: Psychosis Disposition: 01 HOME / SELF CARE / HOMELESS Condition: Fair Written Prescriptions The treatment should help with your symptoms. Please refrain from amphetamines or the problem will return Discharged With: Self (To lobby) Critical Care Note Critical Care Time?: No Stability Stability form required: No KALEE PADRON MD Aug 04, 2024 23:30
[2024-08-04 23:42] LABS: Basophils # (auto) 0 10 ^3/uL (0-0.2); Eosinophils # (auto) 0.2 10 ^3/uL (0-0.8); Red Cell Distribution Width 15.8 % (11.8-14.3)
[2024-08-04 23:44] LABS: Basophils % (auto) 0.3 % (0.0-2.0); Eosinophils % (auto) 1.9 % (0.0-7.0); Hematocrit 33.9 % (36.0-46.0); Lymphocytes # (auto) 1.7 10 ^3/uL (0.4-5.4); Lymphocytes % (auto) 18.4 % (10.0-50.0); Mean Corpuscular Hemoglobin 26.1 pg (28.0-32.0); Mean Corpuscular Hgb Conc. 32.5 g/dL (32.0-36.0); Mean Corpuscular Volume 80.2 fL (80.0-100.0); Monocytes % (auto) 11.1 % (0.0-12.0); Neutrophils # (auto) 6.2 10 ^3/uL (1.6-8.6); Neutrophils % (auto) 68.3 % (37.0-80.0); Platelet Count (auto) 356 10^3/uL (140-450); Red Blood Cells 4.23 10^6/uL (4.0-5.20)
[2024-08-05 00:05] LABS: Acetaminophen < 2.0 UG/ML (10.0-20.0); Alanine Aminotransferase 33 U/L (7-40); Albumin 4.3 g/dL (3.2-4.8); Alkaline Phosphatase 106 U/L (46-116); Anion Gap 11 (5-15); Aspartate Aminotransferase 33 U/L (13-40); BUN/Creatinine Ratio 11.7 (10.0-20.0); Bilirubin, Total 0.5 mg/dL (0.2-1.0); Blood Alcohol < 3.0 mg/dL (<10); Blood Urea Nitrogen 13 mg/dL (9-23); Calcium 9.6 mg/dL (8.7-10.4); Carbon Dioxide 22 mmol/L (20-31); Chloride 104 mmol/L (98-107); Glucose 88 mg/dL (74-106); Potassium 3.6 mmol/L (3.5-5.1); Sodium 137 mmol/L (136-145); Total Protein 7.3 g/dL (5.7-8.2)
[2024-08-05 00:19] LABS: Salicylate < 3.0 mg/dL (-30)
[2024-08-05 00:50] VITALS: BP 129/92; PULSE 97; TEMP 98.3
[2024-08-05] MEDS: LORazepam 2MG/ML-1ML VIAL IM ONE (00:57)
[2024-08-05] MEDS: OLANZapine 5 MG TAB PO ONE (00:57)
[2024-08-05 01:16] VITALS: RESP 18; O2SAT 98
== END 2024-08-05 01:32 | disposition home or self-care (01) ==
LOC: ER 23:15 → EDBD 23:15 → ER 08-05 01:32
DX: F15.10 Other stimulant abuse, uncomplicated (principal); F29 Unspecified psychosis not due to a substance or known physiological condition; I10 Essential (primary) hypertension; F17.200 Nicotine dependence, unspecified, uncomplicated; Z79.52 Long term (current) use of systemic steroids; Z79.899 Other long term (current) drug therapy
CPT/HCPCS: 36415; 80053; 80320; 80329; 85025; 96372; 99283; J2060

== ENCOUNTER 2025-01-01 17:29 | Emergency (ER) | payer MEDICAID ==
[~2025-01-01] VITALS: Ht 167.6 cm; Wt 67.7 kg
[2025-01-01] MEDS: SODIUM CHLORIDE 0.9% 1,000 ML IV ONE (00:30)
--- NOTE | 2025-01-01 18:31 | ED.PDOC ---
GI ASSESSMENT HPI Comments 44-year-old female brought in by family complaining of diffuse abdominal pain, headache, nausea, vomiting, diarrhea, dysuria and lightheadedness for the past 4 days. Patient localizes the pain to the epigastric and lower abdominal areas, states it is constant, and also notes occasional urinary incontinence, urinary frequency and urgency. She denies fever, hematemesis or bloody/black stools. Chief Complaint: Abdominal Pain Time Seen by MD: 17:44 Primary Care Provider: NONE Reviewed Notes: Nurses Notes Allergies: Coded Allergies: NO KNOWN ALLERGIES (Unverified , 07/07/20) Home Meds Active Scripts Hydroxyzine Pamoate (Vistaril) 25 Mg Cap, 1 CAP PO BID, #30 CAP Prov:CINTHIA LOGAN 07/07/24 Cephalexin Monohydrate (Cephalexin) 500 Mg Cap, 1 CAP PO TID, #30 CAP Prov:CINTHIA LOGAN 07/07/24 Sulfamethoxazole W/Trimethopri (Bactrim Ds Tablet) 1 Tab Tb, 1 TAB PO BID for 10 Days, #20 TAB Prov:CINTHIA LOGAN 07/07/24 Ivermectin (Pediculicide) (Ivermectin) 0.5 % Lot, 0.5 % EX ONCE for 1 Day, #1 BOTTLE 0 Refills Prov:JHON ARNETT NP 05/23/24 Triamcinolone Acetonide (Triamcinolone Acetonide) 0.1 % Cre, 2 GRAMS EX BID for 5 Days, #80 GRAMS 0 Refills Prov:JHON ARNETT NP 05/23/24 Prednisone (Prednisone) 20 Mg Tab, 40 MG PO DAILY for 5 Days, #10 TAB 0 Refills Prov:JHON ARNETT NP 05/23/24 Hydroxyzine Hcl (Hydroxyzine Hcl) 25 Mg Tab, 1 TAB PO TIDPRN PRN for 14 Days, #42 TAB 0 Refills Prov:JHON ARNETT NP 05/23/24 Ondansetron Odt 4MG Tab (ZOFRAN PO) 4 Mg Tb, 4 MG PO Q6HPRN PRN, #20 TAB ODT TAB-DISSOLVE IN MOUTH, THEN SWALLOW Prov:YANA FALCON DO 02/05/24 Dicyclomine Hcl (BENTYL CAPSULE) 10 Mg Cp, 2 CAP PO Q6HPRN, #40 CAP 3 Refills Prov:YANA FALCON DO 02/05/24 Metronidazole (Flagyl) 500 Mg Tab, 1 TAB PO TID, #21 TAB Prov:LUCAS ALVES MD 02/18/23 Ciprofloxacin Hcl (Cipro) 500 Mg Tab, 1 TAB PO BID, #14 TAB Prov:LUCAS ALVES MD 02/18/23 Reported Medications Lisinopril (Lisinopril) 10 Mg Tab, 10 MG PO DAILY for 30 Days, MG 05/25/22 Information Source: Patient Mode of Arrival: Ambulatory Past Medical History PAST MEDICAL HISTORY: HTN Past Medical History (Other): SBO, diverticular disease Surgical History: Surgical History (Other): Abdominoplasty PERCHER History: No Pertinent PERCHER History Family History Family History: Reviewed,noncontributory to illness, Family hx of Cancer Social History Smoker: Non-Smoker Alcohol: Occasionally Drugs: Methamphetamine Lives In: Home All Other Systems: Reviewed and Negative (Comprehensive systems review obtained and negative except for what is stated in the HPI.) Physical Exam General Appearance: Mild Distress HEENT: Other (Pupils and face symmetric. Moist mucous membranes.) Neck: Full Range of Motion, Normal Inspection Respiratory: Lungs Clear, No Accessory Muscle Use, No Respiratory Distress, Normal Breath Sounds Cardiovascular: No Edema, No JVD, Regular Rate/Rhythm Breast Exam: Deferred Gastrointestinal: Diffuse, Soft, Tenderness Genitalia: Deferred Pelvic: Deferred Rectal: Deferred Extremities: Normal inspection, Normal range of motion, Non-tender, No pedal edema Neurologic: Alert (Oriented x4), Normal Affect, Normal Mood, Other (Ambulatory without difficulty) Cerebellar Function: NOT DONE Reflexes: NOT DONE Skin: Dry, Normal Color, Warm Lymphatic: NOT DONE Was a procedure done? Was a procedure done?: No GI differential Dx Differential Diagnosis: Appendicitis, Bowel Obstruction, Diverticular disease, Ectopic , Gastritis/PUD, Gastroenteritis, Inflammatory BD, Pancreatitis, UTI, Dehydration, Diabetes/ DKA, Electrolyte Imbalance, Food Poisoning, , Bacterial, Parasitic, Viral, Stress Ulcer, Other (Colitis) X-Ray, Labs, Meds, VS Vital Signs Date Time Temp Pulse Resp B/P (MAP) Pulse Ox O2 Delivery O2 Flow Rate FiO2 01/01/25 17:39 98.1 113 18 139/88 (105) 95 98.1 Lab Test 01/01/25 18:40 01/01/25 17:43 Range/Units White Blood Count 12.4 H 4.4-10.8 10^3/uL Red Blood Count 4.47 4.0-5.20 10^6/uL Hemoglobin 10.5 L 12.2-16.2 g/dL Hematocrit 32.8 L 36.0-46.0 % Mean Corpuscular Volume 73.5 L 80.0-100.0 fL Mean Corpuscular Hemoglobin 23.5 L 28.0-32.0 pg Mean Corpuscular Hemoglobin Concent 32.0 32.0-36.0 g/dL Red Cell Distribution Width 17.5 H 11.8-14.3 % Platelet Count 383 140-450 10^3/uL Mean Platelet Volume 6.5 L 6.9-10.8 fL Neutrophils (%) (Auto) 76.2 37.0-80.0 % Lymphocytes (%) (Auto) 14.0 10.0-50.0 % Monocytes (%) (Auto) 8.8 0.0-12.0 % Eosinophils (%) (Auto) 0.5 0.0-7.0 % Basophils (%) (Auto) 0.5 0.0-2.0 % Neutrophils # (Auto) 9.5 H 1.6-8.6 10 ^3/uL Lymphocytes # (Auto) 1.7 0.4-5.4 10 ^3/uL Monocytes # (Auto) 1.1 0-1.3 10 ^3/uL Eosinophils # (Auto) 0.1 0-0.8 10 ^3/uL Basophils # (Auto) 0.1 0-0.2 10 ^3/uL Nucleated Red Blood Cells 0.0 % Sodium Level 137 136-145 mmol/L Potassium Level 3.7 3.5-5.1 mmol/L Chloride Level 106 98-107 mmol/L Carbon Dioxide Level 19 L 20-31 mmol/L Anion Gap 12 5-15 Blood Urea Nitrogen 16 9-23 mg/dL Creatinine 1.16 H 0.550-1.02 mg/dL Glomerular Filtration Rate Calc 60 >90 mL/min BUN/Creatinine Ratio 13.8 10.0-20.0 Serum Glucose 69 L 74-106 mg/dL Calcium Level 9.8 8.7-10.4 mg/dL Total Bilirubin 0.7 0.2-1.0 mg/dL Aspartate Amino Transferase (AST) 28 13-40 U/L Alanine Aminotransferase (ALT) 21 7-40 U/L Alkaline Phosphatase 88 46-116 U/L Total Protein 7.5 5.7-8.2 g/dL Albumin 4.6 3.2-4.8 g/dL Lipase 33 12-53 U/L Beta HCG, Quantitative 0.8 L 1.5-4.2 mIU/mL Urine Color Yellow Yellow Urine Clarity Turbid H Clear Urine pH 5.5 5.0-9.0 Urine Specific [place] 1.030 1.001-1.035 Urine Protein Trace H Negative Urine Ketones 1+ H Negative Urine Blood Negative Negative /uL Urine Nitrite 2+ H Negative Urine Bilirubin Negative Negative Urine Urobilinogen Normal Negative mg/dL Urine Leukocyte Esterase 3+ Negative /uL Urine RBC 4 0 - 4 /hpf Urine Microscopic WBC 13 H 0-5 /HPF Urine Squamous Epithelial Cells Mod <5 /hpf Urine Bacteria Few H None Seen /hpf Urine Hyaline Casts Few 0 - 2 /lpf Urine Mucus Few None Seen Urine Glucose Normal Normal mg/dL Urine Opiates Screen Neg NEGATIVE Urine Fentanyl Screen Neg NEGATIVE Urine Barbiturates Screen Neg NEGATIVE Urine Phencyclidine Screen Neg NEGATIVE Urine Amphetamines Screen Pos NEGATIVE Urine Benzodiazepines Screen Neg NEGATIVE Urine Cocaine Screen Neg NEGATIVE Urine Cannabinoids Screen Neg NEGATIVE [place] [address] Ph: [phone] DIAGNOSTIC IMAGING Diagnostic Imaging Report : [id number] Signed PATIENT: DENG MEADACCT: [id number] UNIT: [id number] : 1980 LOC: ER ROOM / BED: / AGE / SEX: 44 / F ADM STATUS: REG ER SERVICE 106 ORDERING PHYSICIAN: ANAMARIA BENITO MD PROCEDURE(s): ABPL - CT AB PEL WO CON-NO ORAL OR IV REASON: diffuse abd pain,n/v/d ORDER NUMBER(s): [id number], ACCESSION NUMBER(s): [id number] Procedure: CT CT AB PEL WO CON-NO ORAL OR IV 01/01/2025 08:15 PM Indication: diffuse abd pain,n/v/d Comparison Study: CT CT AB PEL WO CON-NO ORAL OR IV on DOS: 02/05/24, CT CT AB PEL WO CON-NO ORAL OR IV on DOS: 02/16/23, [facility] on DOS: 05/25/22 Technique: Axial images were obtained and reformatted in coronal and sagittal planes. All CT scans at this medical facility are performed using dose modulati on techniques as appropriate to a performed exam including the following: Automated exposure control was utilized; adjustment of the MA and/or KV according to patient size; and use of iterative reconstruction technique. CT Dose: CTDI volume is 7.07 mGy. Dose-length product is 380.68 mGy*cm FINDINGS: Lower Chest: Unremarkable. Hepatobiliary: Unremarkable. Spleen: Unremarkable. Pancreas: Unremarkable. Adrenal Glands: Unremarkable. tract: The kidneys are normal in size bilaterally without hydronephrosis or nephrolithiasis. The urinary bladder is unremarkable. GI tract: A small sliding hiatal hernia noted. No evidence of small bowel obstruction. Scattered colonic diverticula are noted without evidence of diverticulitis. The appendix is normal. Lymphatics: No mesenteric, retroperitoneal or periportal lymphadenopathy. No pelvic lymphadenopathy. Mildly prominent bilateral inguinal and femoral canals lymph nodes measuring up to 3.6 x 1.2 cm in the right groin. Vasculature: The abdominal aorta is normal in caliber. Pelvic Organs: Unremarkable Bones/soft tissues: No acute abnormality. Other: None. IMPRESSION: 1. No CT evidence of acute abnormality in the abdomen or pelvis. 2. Scattered colonic diverticula without diverticulitis. ATED BY: JESSIE HEWITT MD DICTATED DATE/TIME: 01/01/252100 SIGNED BY: JESSIE HEWITT MD SIGNED DATE/TIME: 01/01/252100 CC: X-Ray, Labs, Meds, VS Comment 44-year-old female with a history of hypertension, SBO and diverticular disease complaining of diffuse abdominal pain, nausea, vomiting, diarrhea and dysuria Vitals remarkable for heart rate 113 Exam remarkable for diffuse abdominal tenderness to palpation Rhythm strip independently interpreted by me: Sinus tach, rate 113, no ectopy. CT abdomen and pelvis IMPRESSION: 1. No CT evidence of acute abnormality in the abdomen or pelvis. 2. Scattered colonic diverticula without diverticulitis. CBC remarkable for WBC 12.4, CMP remarkable for CO2 19, creatinine 1.16, lipase normal, UA abnormal consistent with UTI, hCG negative , urine drug screen positive for amphetamines Patient treated with the following in the ED: 1 L 0.9 normal saline IV bolus, morphine 4 mg IV, Zofran 4 mg IV, Protonix 40 mg IV, Rocephin 2 g IV On re-evaluation, patient states pain has improved. Vitals were stable. Tachycardia has resolved. Patient did state she is concerned she may have a pa rasitic infection. She mentioned concern that she developed an infection due to parasites in her food. Stool culture/O and P was sent. Hospitalization was considered, however patient had rapid improvement of symptoms with treatment in the ED, and I no longer feel hospitalization is necessary. Patient now appears stable for discharge with close outpatient follow-up with her primary physician. Time of 1ST Reevaluation: 18:30 Reevaluation 1ST: Unchanged Time of 2ND Reevaluation: 22:01 Reevaluation 2ND: Improved Patient Education/Counseling: Diagnosis, Treatment, Need For Follow Up Family Education/Counseling: No Family Present Departure 1 Departure Time of Disposition: 22:01 Impression: Primary Impression: UTI (urinary tract infection) Qualified Codes: N39.0 - Urinary tract infection, site not specified Additional Impression: Amphetamine abuse Disposition: HOME / SELF CARE / HOMELESS Condition: Stable Referrals: DEWEY PETERS MD Additional Instructions: Your lab tests showed you have a urinary tract infection. Your CT scan was unremarkable. I have prescribed antibiotics, medication for pain and medication for nausea. Follow-up with your primary doctor in 1-2 days for referral to an infectious disease specialist. Alternatively, follow up directly with Dr. Peters. e-Prescriptions Acetaminophen (Tylenol Extra Strength) 500 Mg Tab 1000 MG PO Q6HP PRN, #30 TAB prn pain or fever Prov: ANAMARIA BENITO MD 01/01/25 Ibuprofen Micronized (Ibuprofen) 800 Mg Tab 800 MG PO Q8HP PRN, #30 TAB prn pain or fever, take with food Prov: ANAMARIA BENITO MD 01/01/25 Ondansetron Odt 4MG Tab (ZOFRAN PO) 4 Mg Tb 4 MG PO TID PRN, #30 TAB prn nausea/vomiting ODT TAB-DISSOLVE IN MOUTH, THEN SWALLOW Prov: ANAMARIA BENITO MD 01/01/25 Cephalexin Monohydrate (Cephalexin) 500 Mg Cap 1 CAP PO QID for 10 Days, #40 CAP Prov: ANAMARIA BENITO MD 01/01/25 Discharged With: Self Critical Care Note Critical Care Time?: No Stability Stability form required: No Heart Score Heart Score: Heart Score Response (Comments) Value History N/A 0 EKG N/A 0 Age N/A 0 Risk Factors N/A 0 Troponin N/A 0 Total 0 I personally scribed for ANAMARIA BENITO MD ([email or web address]) on 01/01/25 at 21:50. Electronically submitted by Albina Goodman ([email or web address]). ANAMARIA BENITO MD Jan 01, 2025 18:31
[2025-01-01 18:57] LABS: Basophils # (auto) 0.1 10 ^3/uL (0-0.2); Eosinophils # (auto) 0.1 10 ^3/uL (0-0.8); Eosinophils % (auto) 0.5 % (0.0-7.0); Hemoglobin 10.5 g/dL (12.2-16.2); Monocytes # (auto) 1.1 10 ^3/uL (0-1.3)
[2025-01-01 18:59] LABS: Basophils % (auto) 0.5 % (0.0-2.0); Hematocrit 32.8 % (36.0-46.0); Lymphocytes # (auto) 1.7 10 ^3/uL (0.4-5.4); Mean Corpuscular Hemoglobin 23.5 pg (28.0-32.0); Mean Corpuscular Volume 73.5 fL (80.0-100.0); Monocytes % (auto) 8.8 % (0.0-12.0); Neutrophils # (auto) 9.5 10 ^3/uL (1.6-8.6); Neutrophils % (auto) 76.2 % (37.0-80.0); Platelet Count (auto) 383 10^3/uL (140-450); Red Blood Cells 4.47 10^6/uL (4.0-5.20); Red Cell Distribution Width 17.5 % (11.8-14.3); White Blood Cell 12.4 10^3/uL (4.4-10.8)
[2025-01-01 19:18] LABS: Alanine Aminotransferase 21 U/L (7-40); Albumin 4.6 g/dL (3.2-4.8); Alkaline Phosphatase 88 U/L (46-116); Anion Gap 12 (5-15); Aspartate Aminotransferase 28 U/L (13-40); BUN/Creatinine Ratio 13.8 (10.0-20.0); Bilirubin, Total 0.7 mg/dL (0.2-1.0); Blood Urea Nitrogen 16 mg/dL (9-23); Calcium 9.8 mg/dL (8.7-10.4); Chloride 106 mmol/L (98-107); Lipase 33 U/L (12-53); Potassium 3.7 mmol/L (3.5-5.1); Sodium 137 mmol/L (136-145); Total Protein 7.5 g/dL (5.7-8.2)
[2025-01-01 19:25] LABS: Carbon Dioxide 19 mmol/L (20-31); Glucose 69 mg/dL (74-106)
[2025-01-01 19:56] LABS: Amphetamine Screen, Urine Pos (NEGATIVE); Barbiturate Scree,Urine Neg (NEGATIVE); Benzodiazephine Screen, Urine Neg (NEGATIVE); Cannabinoid Screen, Urine Neg (NEGATIVE); Cocaine Screen, Urine Neg (NEGATIVE); Opiate Scree,Urine Neg (NEGATIVE); Phencyclidine Screen, Urine Neg (NEGATIVE)
[2025-01-01 20:02] LABS: Urine Bacteria FEW /hpf (None Seen); Urine Blood Negative /uL (Negative); Urine Clarity Turbid (Clear); Urine Color Yellow (Yellow); Urine Hyaline Cast FEW /lpf (0 - 2); Urine Mucus FEW (None Seen); Urine Protein, UAD TRACE (Negative); Urine Squamous Epithelial Cell MOD /hpf (<5); Urine Urobilinogen Normal (Negative); Urine WBC 13 /HPF (0-5); Urine pH 5.5 (5.0-9.0)
--- NOTE | 2025-01-01 21:03 | DVH ---
Procedure: CT CT AB PEL WO CON-NO ORAL OR IV 01/01/2025 08:15 PM Indication: diffuse abd pain,n/v/d Comparison Study: CT CT AB PEL WO CON-NO ORAL OR IV on DOS: 02/05/24, CT CT AB PEL WO CON-NO ORAL OR I V on DOS: 02/16/23, [facility] on DOS: 05/25/22 Technique: Axial images were obtained and reformatted in coronal and sagittal planes. All CT scans at this medical facility are performed using dose modulation techniques as appropriate to a performed e xam including the following: Automated exposure control was utilized; adjustment of the MA and/or KV according to patient size; and use of iterative reconstruction technique. CT Dose: CTDI volume is 7.0 7 mGy. Dose-length product is 380.68 mGy*cm FINDINGS: Lower Chest: Unremarkable. Hepatobiliary: Unremarkable. Spleen: Unremarkable. Pancreas: Unremarkable. Adrenal Glands: Unremarkable. tract: The kidneys are normal in size bilaterally without hydronephrosis or nephrolithiasis. The u rinary bladder is unremarkable. GI tract: A small sliding hiatal hernia noted. No evidence of small bowel obstruction. Scattered colo dean diverticula are noted without evidence of diverticulitis. The appendix is normal. Lymphatics: No mesenteric, retroperitoneal or periportal lymphadenopathy. No pelvic lymphadenopathy. Mildly prominent bilateral inguinal and femoral canals lymph nodes measuring up to 3.6 x 1.2 cm in th e right groin. Vasculature: The abdominal aorta is normal in caliber. Pelvic Organs: Unremarkable Bones/soft tissues: No acute abnormality. Other: None. IMPRESSION: 1. No CT evidence of acute abnormality in the abdomen or pelvis. 2. Scattered colonic diverticula without diverticulitis.
[2025-01-01] MEDS ORDERED: IBUP-1455 PO (22:06)
[2025-01-01] MEDS ORDERED: ZOFR4T PO (22:06)
[2025-01-01] MEDS ORDERED: ACET-1304 PO (22:06)
[2025-01-01] MEDS ORDERED: CEPH500C PO (22:06)
[2025-01-01 22:24] VITALS: PULSE 102; RESP 18; TEMP 97.7; O2SAT 99
[2025-01-02] MEDS: ONDANSETRON HCL 4 MG/2 ML VIAL IV ONE (00:01)
[2025-01-02] MEDS: MORPHINE SULFATE 4 MG/ML SYR/VIAL IV ONE (00:02)
[2025-01-02] MEDS: cefTRIAXone 2GM/50ML D5W 50 ML IV ONE (00:02)
[2025-01-02] MEDS: PANTOPRAZOLE 40 MG/10 ML VIAL INJ IV ONE (00:07)
[2025-01-02 00:40] VITALS: BP 124/88; PULSE 67; RESP 18
== END 2025-01-02 01:50 | disposition home or self-care (01) ==
LOC: ER 17:29
DX: N39.0 Urinary tract infection, site not specified (principal); F15.10 Other stimulant abuse, uncomplicated; I10 Essential (primary) hypertension; K57.30 Diverticulosis of large intestine without perforation or abscess without bleeding; R10.2 Pelvic and perineal pain; Z79.899 Other long term (current) drug therapy; Z98.890 Other specified postprocedural states
CPT/HCPCS: 36415; 74176; 80053; 80307; 81001; 83690; 84702; 85025; 87045; 87086; 87427; 96365; 96375; 99285; J0696; J2270; J2405; J2470; J7030

== ENCOUNTER 2025-05-31 20:38 | Emergency (ER) | payer MEDICAID, OTHER ==
[~2025-05-31] VITALS: Ht 167.6 cm; Wt 62.7 kg
[~2025-05-31 20:38] MED LIST changes: +ACET-1304 PO; +IBUP-1455 PO
--- NOTE | 2025-05-31 21:22 | ED.PDOC ---
History of Present Illness(SKN HPI Comments This is a homeless 45 year-old female, with a Hx of HTN, who presents to the ED with a chief complaint of scalp rash with associated itchiness and scabbing as of x2 weeks ago. Patient has a social history of methamphetamine and ETOH intoxification. Patient has no further complaints at this time and otherwise denies any fever, N/V/D, dizziness, head trauma, or blurred vision. Patients vital signs are stable. Patient was not well kempt and dirty. Chief Complaint: Rash Time Seen by MD: 21:02 Primary Care Provider: NONE History of Present Illness: Nurses Notes, Medications, Allergies Allergies: Coded Allergies: NO KNOWN ALLERGIES (Unverified , 07/07/20) Home Meds Active Scripts Acetaminophen (Tylenol Extra Strength) 500 Mg Tab, 1000 MG PO Q6HP PRN, #30 TAB prn pain or fever Prov:ANAMARIA BENITO MD 01/01/25 Ibuprofen Micronized (Ibuprofen) 800 Mg Tab, 800 MG PO Q8HP PRN, #30 TAB prn pain or fever, take with food Prov:ANAMARIA BENITO MD 01/01/25 Ondansetron Odt 4MG Tab (ZOFRAN PO) 4 Mg Tb, 4 MG PO TID PRN, #30 TAB prn nausea/vomiting ODT TAB-DISSOLVE IN MOUTH, THEN SWALLOW Prov:ANAMARIA BENITO MD 01/01/25 Cephalexin Monohydrate (Cephalexin) 500 Mg Cap, 1 CAP PO QID for 10 Days, #40 CAP Prov:ANAMARIA BENITO MD 01/01/25 Hydroxyzine Pamoate (Vistaril) 25 Mg Cap, 1 CAP PO BID, #30 CAP Prov:CINTHIA LOGAN 07/07/24 Cephalexin Monohydrate (Cephalexin) 500 Mg Cap, 1 CAP PO TID, #30 CAP Prov:CINTHIA LOGAN 07/07/24 Sulfamethoxazole W/Trimethopri (Bactrim Ds Tablet) 1 Tab Tb, 1 TAB PO BID for 10 Days, #20 TAB Prov:CINTHIA LOGAN 07/07/24 Ivermectin (Pediculicide) (Ivermectin) 0.5 % Lot, 0.5 % EX ONCE for 1 Day, #1 BOTTLE 0 Refills Prov:JHON ARNETT MACHINE LEAD BURNER 05/23/24 Triamcinolone Acetonide (Triamcinolone Acetonide) 0.1 % Cre, 2 GRAMS EX BID for 5 Days, #80 GRAMS 0 Refills Prov:JHON ARNETT MACHINE LEAD BURNER 05/23/24 Prednisone (Prednisone) 20 Mg Tab, 40 MG PO DAILY for 5 Days, #10 TAB 0 Refills Prov:JHON ARNETT MACHINE LEAD BURNER 05/23/24 Hydroxyzine Hcl (Hydroxyzine Hcl) 25 Mg Tab, 1 TAB PO TIDPRN PRN for 14 Days, #42 TAB 0 Refills Prov:JHON ARNETT MACHINE LEAD BURNER 05/23/24 Ondansetron Odt 4MG Tab (ZOFRAN PO) 4 Mg Tb, 4 MG PO Q6HPRN PRN, #20 TAB ODT TAB-DISSOLVE IN MOUTH, THEN SWALLOW Prov:YANA FALCON DO 02/05/24 Dicyclomine Hcl (BENTYL CAPSULE) 10 Mg Cp, 2 CAP PO Q6HPRN, #40 CAP 3 Refills Prov:YANA FALCON DO 02/05/24 Metronidazole (Flagyl) 500 Mg Tab, 1 TAB PO TID, #21 TAB Prov:LUCAS ALVES MD 02/18/23 Ciprofloxacin Hcl (Cipro) 500 Mg Tab, 1 TAB PO BID, #14 TAB Prov:LUCAS ALVES MD 02/18/23 Reported Medications Lisinopril (Lisinopril) 10 Mg Tab, 10 MG PO DAILY for 30 Days, MG 05/25/22 Information Source: Patient Mode of Arrival: Ambulatory Severity: Moderate Timing: Weeks Duration: Since onset Prehospital treatment: None Location: Head (scalp ) Mechanism: Spontaneous Onset Object: None Condition of Object: None Wound Type: Papule Tetanus: >5 Years Associated Signs and Symptoms: Redness, Other (itchiness and scabbing ) Past Medical History PAST MEDICAL HISTORY: HTN Surgical History: IMPORT SPECIALIST History: No Pertinent IMPORT SPECIALIST History Family History Family History: Reviewed,noncontributory to illness, Family hx of Cancer Social History Smoker: Non-Smoker Alcohol: Occasionally Drugs: Methamphetamine Lives In: Home Constitutional: denies: chills, diaphoresis, fatigue, fever, malaise, sweats, weakness, others EENTM: denies: blurred vision, double vision, ear bleeding, ear discharge, ear drainage, ear pain, ear ringing, eye pain, eye redness, hearing loss, mouth pain, mouth swelling, nasal discharge, nose bleeding, nose congestion, nose pain, photophobia, tearing, throat pain, throat swelling, voice changes, others Respiratory: denies: cough, hemoptysis, orthopnea, SOB at rest, shortness of breath, SOB with excertion, stridor, wheezing, others Cardiovascular: denies: chest pain, dizzy spells, diaphoresis, Dyspnea on exertion, edema, irregular heart beat, left arm pain, lightheadedness, palpitations, PND, syncope, others Gastrointestinal: denies: abdomen distended, abdominal pain, blood streaked bowels, constipated, diarrhea, dysphagia, difficulty swallowing, hematemesis, melena, nausea, poor appetite, poor fluid intake, rectal bleeding, rectal pain, vomiting, others Genitourinary: denies: abnormal vagina bleeding, burning, dyspareunia, dysuria, flank pain, frequency, hematuria, incontinence, pain, , vagina discharge, urgency, others Neurological: denies: dizziness, fainting, headache, left sided numbness, left sided weakness, numbness, paresthesia, pre-existing deficit, right sided numbness, right sided weakness, seizure, speech problems, tingling, tremors, weakness, others Musculoskeletal: denies: back pain, gout, joint pain, joint swelling, muscle pain, muscle stiffness, neck pain, others Integumetry: reports: others (itchiness, scabbing, redness to scalp ); denies: bruises, change in color, change in hair/nails, dryness, laceration, lesions, lumps, rash, wounds Allergic/Immunocompromised: denies: Difficulty Healing, Frequent Infections, Hives, Itching, others Hematologic/Lymphatic: denies: anemia, blood clots, easy bleeding, easy bruising, swollen glands, others Endocrine: denies: excessive hunger, excessive sweating, excessive thirst, excessive urination, flushing, intolerance to cold, intolerance to heat, unexplained weight gain, unexplained weight loss, others Psychiatric: denies: anxiety, bipolar disorder, depression, hopeless, panic disorder, schizophrenia, sleepless, suicidal, others All Other Systems: Reviewed and Negative Physical Exam General Appearance: Moderate Distress (Dtob-ld-kabddudo distress due to skin concerns.), Normal HEENT: Pharynx Normal, TMs Normal, Other (Scalp inspection reveals multiple areas of what appeared to be lice oral or insect trauma. Weeping noted multiple sites. Localized erythema and edema. No definitive eggs appreciated on hair shafts.) Neck: Full Range of Motion, Non-Tender, Normal, Normal Inspection Respiratory: Chest Non-Tender, Lungs Clear, No Accessory Muscle Use, No Respiratory Distress, Normal Breath Sounds Cardiovascular: No Edema, No JVD, No Murmur, No Gallop, Normal Peripheral Pulses, Regular Rate/Rhythm Breast Exam: Deferred Gastrointestinal: No Organomegaly, Non Tender, No Pulsatile Mass, Normal Bowel Sounds, Soft Genitalia: Deferred Pelvic: Deferred Rectal: Deferred Extremities: No calf tenderness, Normal capillary refill, Normal inspection, Normal range of motion, Non-tender, No pedal edema Neurologic: Alert Cerebellar Function: NOT DONE Reflexes: NOT DONE Skin: Dry, Normal Color, Warm Lymphatic: No Adenopathy Was a procedure done? Was a procedure done?: No Differential Diagnosis (INTG) Differential Diagnosis: Cellulitis, Insect Envenomation, Other (Skin infection) X-Ray, Labs, Meds, VS Vital Signs Date Time Temp Pulse Resp B/P (MAP) Pulse Ox O2 Delivery O2 Flow Rate FiO2 05/31/25 22:37 100 20 100 Room Air 05/31/25 22:37 97.6 100 20 124/90 (101) 100 97.6 05/31/25 20:43 97.8 101 16 134/90 99 97.8 Current Medications Medications (Trade) Dose Ordered Sig/Veena Route Start Time Stop Time Status Last Admin Acetaminophen (Tylenol Tablet) 1,000 mg ONCE ONCE PO 05/31/25 21:00 05/31/25 21:01 DC 05/31/25 22:33 Ibuprofen (Motrin Tablet) 600 mg ONCE ONCE PO 05/31/25 21:00 05/31/25 21:01 DC 05/31/25 22:33 Diphtheria/ Tetanus/Acell Pertussis (Boostrix T-Dap) 0.5 ml ONCE ONCE IM 05/31/25 21:00 05/31/25 21:01 DC 05/31/25 22:34 X-Ray, Labs, Meds, VS Comment Spent time discussing the patient's concerns with her. Advised that she looks like she has some level lobe envenomation on her scalp that may be related to bedbugs, ticks or some other offending insect. Advise utilizing the Elimite medication as directed, try to maintain a clean living environment and utilize antibiotics as directed to stave off any additional infective concerns. Images Reviewed?: Images reviewed and evaluated by me Time of 1ST Reevaluation: 23:19 Reevaluation 1ST: Unchanged Consultation: PCP Patient Education/Counseling: Diagnosis, Treatment Family Education/Counseling: Diagnosis, Treatment, No Family Present SEPSIS Sepsis Screen Date sepsis recognized/suspect: May 31, 2025 Time Sepsis recognized/suspect: 2042 Recent Procedure: No On Antibiotic Therapy: No Respiratory Rate >20: No Heart Rate >90: Yes Temp<36 C (96.8 F) or >38.3 C: No SBP <90 or MAP <65 mmHG: No New Acute Mental Status Change: No Is the patient on CPAP, BIPAP,: No Vital Signs Date Time Temp Pulse Resp B/P (MAP) Pulse Ox O2 Delivery O2 Flow Rate FiO2 05/31/25 22:37 100 20 100 Room Air 05/31/25 22:37 97.6 100 20 124/90 (101) 100 97.6 05/31/25 20:43 97.8 101 16 134/90 99 97.8 Medications Medications Dose Ordered Sig/Veena Route Start Time Stop Time Status Last Admin Dose Admin Acetaminophen 1,000 mg ONCE ONCE PO 05/31/25 21:00 05/31/25 21:01 DC 05/31/25 22:33 Diphtheria/ Tetanus/Acell Pertussis 0.5 ml ONCE ONCE IM 05/31/25 21:00 05/31/25 21:01 DC 05/31/25 22:34 Ibuprofen 600 mg ONCE ONCE PO 05/31/25 21:00 05/31/25 21:01 DC 05/31/25 22:33 Departure 1 Departure Time of Disposition: 23:19 Impression: Primary Impression: Exposure to head lice Additional Impression: Skin infection Disposition: HOME / SELF CARE / HOMELESS Condition: Stable Additional Instructions: Advised patient utilize Elimite initially and to repeat the process in 10 days. Patient utilize antibiotics as directed until completion. Advised patient to attempt to find clean outlets for sleeping. e-Prescriptions Hydroxyzine Hcl (Hydroxyzine Hcl) 25 Mg Tab 1 TAB PO Q8HP PRN, #20 TAB Prov: AMY RICHARDSON PAC 05/31/25 Cephalexin (KEFLEX CAPSULE) 250 Mg Cp 1 CAP PO QID for 7 Days, #28 CAP Prov: AMY RICHARDSON PAC 05/31/25 Permethrin (Elimite) 5 % Cre 1 APPLIC TOP ONCE, #60 GRAMS 1 Refill Apply 1st dose as directed and repeat in 10 days. Prov: AMY RICHARDSON PAC 05/31/25 Discharged With: Self, Friend Critical Care Note Critical Care Time?: No Stability Stability form required: No Heart Score Heart Score: Heart Score Response (Comments) Value History N/A 0 EKG N/A 0 Age N/A 0 Risk Factors N/A 0 Troponin N/A 0 Total 0 I personally scribed for AMY RICHARDSON PAC ([email or web address]) on 05/31/25 at 21:22. Electronically submitted by Kandace JaffeYueq[employer]). AMY RICHARDSON PAC May 31, 2025 21:22
[2025-05-31] MEDS: ACETAMINOPHEN 325 MG TAB PO ONE (22:33)
[2025-05-31] MEDS: IBUPROFEN 600 MG TAB PO ONE (22:33)
[2025-05-31] MEDS: TETANUS-DIPTH-ACEL PERTUSSIS 0.5ML SYR Tdap IM ONE (22:34)
[2025-05-31 22:37] VITALS: BP 124/90; PULSE 100; RESP 20; TEMP 97.6; O2SAT 100
[2025-05-31] MEDS ORDERED: HYDR-3682 PO (23:23)
[2025-05-31] MEDS ORDERED: CEPH250C PO (23:23)
[2025-05-31] MEDS ORDERED: PER60TP TOP (23:23)
== END 2025-05-31 20:43 | disposition home or self-care (01) ==
LOC: ER 20:38 → EDBD 20:38 → ER 20:43
DX: L08.9 Local infection of the skin and subcutaneous tissue, unspecified (principal); I10 Essential (primary) hypertension; F19.90 Other psychoactive substance use, unspecified, uncomplicated; F10.90 Alcohol use, unspecified, uncomplicated; Z79.899 Other long term (current) drug therapy; Z59.00 Homelessness unspecified; Z20.7 Contact with and (suspected) exposure to pediculosis, acariasis and other infestations; Z79.52 Long term (current) use of systemic steroids; Y90.9 Presence of alcohol in blood, level not specified
CPT/HCPCS: 90471; 90715

== ENCOUNTER 2025-06-02 18:48 | Emergency (ER) | payer OTHER ==
[~2025-06-02] VITALS: Ht 162.6 cm; Wt 68.0 kg
[~2025-06-02 18:48] MED LIST changes: +CEPH250C PO; +PER60TP TOP
[2025-06-02 18:53] VITALS: BP 130/92; PULSE 111; RESP 16; TEMP 98.1; O2SAT 100
[2025-06-02] MEDS ORDERED: KETOROLAC TROMETH 60MG/2ML VIAL IM ONE (19:15)
[2025-06-02] MEDS ORDERED: HYDROcodone-ACET 10/325MG TAB PO ONE (19:15)
--- NOTE | 2025-06-02 19:37 | ED.PDOC ---
History of Present Illness HPI Comments 45 y/o F is BIBA for c/c headache. Patient endorses on 1x week history of headache following unprovoked and atraumatic onset. She comments on recent development of forehead swelling, yesterday, following recent [facility] ED visit, where she was treated for antibiotics and given a Tetanus shot after being found with a scalp infection. Denial of any vision or speech changes, fever, chills, or further associated symptoms. Chief Complaint: Headache Time Seen by MD: 19:00 Primary Care Provider: NONE Reviewed Notes: Nurses Notes, Medications, Allergies Allergies: Coded Allergies: NO KNOWN ALLERGIES (Unverified , 07/07/20) Home Meds Active Scripts Hydroxyzine Hcl (Hydroxyzine Hcl) 25 Mg Tab, 1 TAB PO Q8HP PRN, #20 TAB Prov:AMY RICHARDSON PAC 05/31/25 Cephalexin (KEFLEX CAPSULE) 250 Mg Cp, 1 CAP PO QID for 7 Days, #28 CAP Prov:AMY RICHARDSON PAC 05/31/25 Permethrin (Elimite) 5 % Cre, 1 APPLIC TOP ONCE, #60 GRAMS 1 Refill Apply 1st dose as directed and repeat in 10 days. Prov:AMY RICHARDSON PAC 05/31/25 Acetaminophen (Tylenol Extra Strength) 500 Mg Tab, 1000 MG PO Q6HP PRN, #30 TAB prn pain or fever Prov:ANAMARIA BENITO MD 01/01/25 Ibuprofen Micronized (Ibuprofen) 800 Mg Tab, 800 MG PO Q8HP PRN, #30 TAB prn pain or fever, take with food Prov:ANAMARIA BENITO MD 01/01/25 Ondansetron Odt 4MG Tab (ZOFRAN PO) 4 Mg Tb, 4 MG PO TID PRN, #30 TAB prn nausea/vomiting ODT TAB-DISSOLVE IN MOUTH, THEN SWALLOW Prov:ANAMARIA BENITO MD 01/01/25 Cephalexin Monohydrate (Cephalexin) 500 Mg Cap, 1 CAP PO QID for 10 Days, #40 CAP Prov:ANAMARIA BENITO MD 01/01/25 Hydroxyzine Pamoate (Vistaril) 25 Mg Cap, 1 CAP PO BID, #30 CAP Prov:CINTHIA LOGAN 07/07/24 Cephalexin Monohydrate (Cephalexin) 500 Mg Cap, 1 CAP PO TID, #30 CAP Prov:HÉCTOR LOGANKala KAM 07/07/24 Sulfamethoxazole W/Trimethopri (Bactrim Ds Tablet) 1 Tab Tb, 1 TAB PO BID for 10 Days, #20 TAB Prov:CINTHIA OLGAN EDDY 07/07/24 Ivermectin (Pediculicide) (Ivermectin) 0.5 % Lot, 0.5 % EX ONCE for 1 Day, #1 BOTTLE 0 Refills Prov:JHON ARNETT [employer] 05/23/24 Triamcinolone Acetonide (Triamcinolone Acetonide) 0.1 % Cre, 2 GRAMS EX BID for 5 Days, #80 GRAMS 0 Refills Prov:JHON ARNETT Humberto [employer]RARIAN 05/23/24 Prednisone (Prednisone) 20 Mg Tab, 40 MG PO DAILY for 5 Days, #10 TAB 0 Refills Prov:JHON ARNETT Humberto [employer] LIBRARIAN 05/23/24 Hydroxyzine Hcl (Hydroxyzine Hcl) 25 Mg Tab, 1 TAB PO TIDPRN PRN for 14 Days, #42 TAB 0 Refills Prov:JHON ARNETT Humberto VEGA 05/23/24 Ondansetron Odt 4MG Tab (ZOFRAN PO) 4 Mg Tb, 4 MG PO Q6HPRN PRN, #20 TAB ODT TAB-DISSOLVE IN MOUTH, THEN SWALLOW Prov:YANA FALCON DO 02/05/24 Dicyclomine Hcl (BENTYL CAPSULE) 10 Mg Cp, 2 CAP PO Q6HPRN, #40 CAP 3 Refills Prov:YANA FALCON DO 02/05/24 Metronidazole (Flagyl) 500 Mg Tab, 1 TAB PO TID, #21 TAB Prov:LUCAS ALVES MD 02/18/23 Ciprofloxacin Hcl (Cipro) 500 Mg Tab, 1 TAB PO BID, #14 TAB Prov:LUCAS ALVES MD 02/18/23 Reported Medications Lisinopril (Lisinopril) 10 Mg Tab, 10 MG PO DAILY for 30 Days, MG 05/25/22 Information Source: Patient Mode of Arrival: EMS Severity: Moderate Timing: Weeks Duration: Since onset Prehospital treatment: 12 Lead EKG, Appraiser Personal Property Past Medical History PAST MEDICAL HISTORY: HTN 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 Was a procedure done?: No Differential Dx Considerations may include: migraines, tension headache, dermatitis, meningitis, among others X-Ray, Labs, Meds, VS Vital Signs Date Time Temp Pulse Resp B/P (MAP) Pulse Ox O2 Delivery O2 Flow Rate FiO2 06/02/25 18:53 98.1 111 16 130/92 100 98.1 06/02/25 18:51 111 Time of 1ST Reevaluation: 19:30 Reevaluation 1ST: Unchanged Patient Education/Counseling: Diagnosis, Treatment Family Education/Counseling: No Family Present SEPSIS Sepsis Screen Date sepsis recognized/suspect: Jun 02, 2025 Time Sepsis recognized/suspect: 185 Recent Procedure: No On Antibiotic Therapy: No Respiratory Rate >20: No Heart Rate >90: Yes Temp<36 C (96.8 F) or >38.3 C: No SBP <90 or MAP <65 mmHG: No New Acute Mental Status Change: No Is the patient on CPAP, BIPAP,: No Physician Orders Electrocardigram (06/02/25 19:00) Vital Signs Date Time Temp Pulse Resp B/P (MAP) Pulse Ox O2 Delivery O2 Flow Rate FiO2 06/02/25 18:53 98.1 111 16 130/92 100 98.1 06/02/25 18:51 111 Critical Care Note Critical Care Time?: No Stability Stability form required: No Heart Score Heart Score: Heart Score Response (Comments) Value History N/A 0 EKG N/A 0 Age N/A 0 Risk Factors N/A 0 Troponin N/A 0 Total 0 I personally scribed for AMY RICHARDSON PAC ([email or web address]) on 06/02/25 at 19:37. Electronically submitted by Lalo Chi ([email or web address]). AMY RICHARDSON PAC Jun 02, 2025 19:37
--- NOTE | 2025-06-02 19:40 | ECG ---
[facility] Test Date: 2025-06-02 Test Time: 18:51:15 Pat Name: DENG MEAD Department: [facility] ED Patient ID: [id number] Room: Gender: F Awning Spreader: TIRSO : 1980 Requested By: AMY RICHARDSON Order Number: [id number] Reading MD: Measurements Intervals [place] Rate: 111 P: 76 AR: 148 QRS: 78 QRSD: 81 T: 71 QT: 321 QTc: 436 Interpretive Statements Sinus tachycardia Ventricular premature complex Low voltage, precordial leads Please click the below link to view image of tracing.
== END 2025-06-02 22:31 | disposition left against medical advice (07) ==
LOC: ER 18:48 → EDBD 18:48 → ER 22:31
DX: R51.9 Headache, unspecified (principal); I10 Essential (primary) hypertension; Z79.899 Other long term (current) drug therapy
CPT/HCPCS: 93005